=== PATIENT | female | born 1970 | race Two or more races ===

== ENCOUNTER 2018-01-17 14:08 | Outpatient (CLI) | payer OTHER ==
[~2018-01-17 14:08] MED LIST: ADULT ASPIRIN81 MG; ADULT ASPIRIN81 MG PO; BENZONATATE100 MG PO; COZAAR25 MG; COZAAR25 MG PO; HumaLOG 100 UNIT/1 M SUBCUTANEO; JANUMET 50-5001 EACH; JANUMET 50-5001 EACH PO; LEVAQUIN750 MG PO; Lantus 1000 UNITS/10 SUBCUTANEO; MEDROLPACK PO; NEURONTIN300 MG; NEURONTIN300 MG PO; TEGRETOL200 MG PO; XOPENEX0.63 MG/3 IH
== END 2018-01-17 14:11 | disposition home or self-care (01) ==
LOC: RAD 14:08
DX: J18.9 Pneumonia, unspecified organism (principal); J43.2 Centrilobular emphysema

== ENCOUNTER 2018-05-05 09:53 | Emergency (ER) | payer OTHER ==
[~2018-05-05] VITALS: Ht 154.9 cm; Wt 79.8 kg
[2018-05-05] MEDS ORDERED: CARDURA1 MG PO (20:47)
== END 2018-05-05 21:00 | disposition home or self-care (01) ==
LOC: ER 09:53 → CPU-OBS 10:46 → ER 10:46
DX: R07.89 Other chest pain (principal); I10 Essential (primary) hypertension
CPT/HCPCS: G0378; G0379; 93005

== ENCOUNTER 2018-05-19 13:53 | Outpatient (CLI) | payer OTHER ==
[~2018-05-19 13:53] MED LIST changes: +CARDURA1 MG PO
== END 2018-05-19 14:10 | disposition home or self-care (01) ==
LOC: RAD 13:53
DX: E04.1 Nontoxic single thyroid nodule (principal); Z12.31 Encounter for screening mammogram for malignant neoplasm of breast; N61.0 Mastitis without abscess

== ENCOUNTER 2019-09-29 09:00 | Emergency (ER) | payer OTHER ==
[~2019-09-29] VITALS: Ht 154.9 cm; Wt 78.9 kg
[2019-09-29] MEDS ORDERED: HUMALOG100 UNIT/1 SUBCUTANEO (09:11)
[2019-09-29] MEDS ORDERED: TRESIBA100 UNIT/1 SUBCUTANEO (09:11)
[2019-09-29] MEDS ORDERED: JARDIANCE10 MG PO (09:12)
[2019-09-29] MEDS ORDERED: PROPRANOLOL HCL10 MG PO (09:13)
[2019-09-29] MEDS ORDERED: PROMETH-CODEIN 65 ML PO (09:34)
== END 2019-09-29 10:02 | disposition home or self-care (01) ==
LOC: ER 09:00
DX: J44.9 Chronic obstructive pulmonary disease, unspecified (principal)

== ENCOUNTER 2019-10-04 14:46 | Emergency (ER) | payer OTHER ==
[~2019-10-04] VITALS: Ht 152.4 cm; Wt 78.9 kg
[~2019-10-04 14:46] MED LIST changes: +HUMALOG100 UNIT/1 SUBCUTANEO; +JARDIANCE10 MG PO; +PROMETH-CODEIN 65 ML PO; +PROPRANOLOL HCL10 MG PO; +TRESIBA100 UNIT/1 SUBCUTANEO
[2019-10-04] MEDS ORDERED: ADVIL (15:53)
== END 2019-10-04 17:55 | disposition home or self-care (01) ==
LOC: ER 14:46
DX: R06.6 Hiccough (principal); R10.13 Epigastric pain

== ENCOUNTER → 2019-10-08 | Outpatient (CLI) | payer OTHER ==
[~2019-10-08] MED LIST changes: +ADVIL
== END | disposition home or self-care (01) ==
LOC: TOM 08:18
DX: K45.8 Other specified abdominal hernia without obstruction or gangrene (principal); K46.0 Unspecified abdominal hernia with obstruction, without gangrene

== ENCOUNTER 2021-05-03 10:32 | Day surgery (SDC) | payer OTHER ==
[~2021-05-03 10:32] MED LIST changes: +FENOFIBR PO; +JANUMET PO
== END 2021-05-03 22:50 | disposition home or self-care (01) ==
LOC: CIR.AMB 10:32
PROVIDERS: ATTEND Specialist
DX: B07.8 Other viral warts (principal); Z20.822 Contact with and (suspected) exposure to COVID-19; Z53.09 Procedure and treatment not carried out because of other contraindication; I10 Essential (primary) hypertension

== ENCOUNTER 2021-05-24 05:20 | Day surgery (SDC) | payer OTHER | END 2021-05-24 15:15 | disposition home or self-care (01) | LOC: CIR.AMB 05:20 | PROVIDERS: ATTEND Specialist | DX: A63.0 Anogenital (venereal) warts (principal); B07.8 Other viral warts; Z20.822 Contact with and (suspected) exposure to COVID-19 ==

== ENCOUNTER 2021-12-19 08:45 | Outpatient (CLI) | payer OTHER | END 2021-12-19 08:51 | disposition home or self-care (01) | LOC: MAMO-SONO 08:45 | PROVIDERS: ATTEND Internal Medicine | DX: N64.9 Disorder of breast, unspecified (principal) ==

== ENCOUNTER 2022-11-12 09:24 | Outpatient (CLI) | payer OTHER | END 2022-11-12 09:31 | disposition home or self-care (01) | LOC: SONOGRAMA 09:24 | PROVIDERS: ATTEND Internal Medicine Gastroenterology | DX: R10.9 Unspecified abdominal pain (principal) ==

== ENCOUNTER 2022-12-06 07:25 | Outpatient (CLI) | payer OTHER | END 2022-12-06 07:27 | disposition home or self-care (01) | LOC: NUCLEAR 07:25 | PROVIDERS: ATTEND Internal Medicine Gastroenterology | DX: K31.84 Gastroparesis (principal) | CPT/HCPCS: 78264; A9541 ==

== ENCOUNTER 2023-02-11 12:26 | Outpatient (CLI) | payer OTHER | END 2023-02-11 12:33 | disposition home or self-care (01) | LOC: MAMO-SONO 12:26 | PROVIDERS: ATTEND Specialist | DX: N63.11 Unspecified lump in the right breast, upper outer quadrant (principal); N63.21 Unspecified lump in the left breast, upper outer quadrant; N83.209 Unspecified ovarian cyst, unspecified side ==

== ENCOUNTER 2023-03-11 01:43 | Emergency (ER) | payer OTHER ==
[~2023-03-11] VITALS: Ht 144.8 cm; Wt 77.1 kg
[2023-03-11] MEDS ORDERED: TRIJARDY XR 101 EACH (01:54)
[2023-03-11] MEDS ORDERED: LOSARTAN-HCTZ1 EAC2 (01:55)
[2023-03-11] MEDS ORDERED: TUSSI PRES-B L480 ML PO (15:15)
[2023-03-11] MEDS ORDERED: BUDESONIDE0.5 MG/2 M IH (15:15)
[2023-03-11] MEDS ORDERED: TESSALON PERLES PO (15:15)
[2023-03-11] MEDS ORDERED: LEVOFLOXACIN750 MG PO (15:15)
[2023-03-11] MEDS ORDERED: ALBUTEROL2.5 MG/3 M IH (15:15)
[2023-03-11] MEDS ORDERED: IPRATROPIU0.2 MG/1 M IH (15:15)
[2023-03-11] MEDS ORDERED: INTESTINEX680 M2 PO (15:15)
== END 2023-03-11 16:40 | disposition home or self-care (01) ==
LOC: ER 01:43
DX: J44.1 Chronic obstructive pulmonary disease with (acute) exacerbation (principal); J45.31 Mild persistent asthma with (acute) exacerbation; F17.210 Nicotine dependence, cigarettes, uncomplicated; E11.65 Type 2 diabetes mellitus with hyperglycemia; E11.40 Type 2 diabetes mellitus with diabetic neuropathy, unspecified; Z79.4 Long term (current) use of insulin; I10 Essential (primary) hypertension; G50.0 Trigeminal neuralgia; E66.8 Other obesity

== ENCOUNTER 2023-09-14 11:34 | Emergency (ER) | payer OTHER ==
[~2023-09-14] VITALS: Ht 144.8 cm; Wt 73.5 kg
[~2023-09-14 11:34] MED LIST changes: +ALBUTEROL2.5 MG/3 M IH; +BUDESONIDE0.5 MG/2 M IH; +INTESTINEX680 M2 PO; +IPRATROPIU0.2 MG/1 M IH; +LEVOFLOXACIN750 MG PO; +LOSARTAN-HCTZ1 EAC2; +TESSALON PERLES PO; +TRIJARDY XR 101 EACH; +TUSSI PRES-B L480 ML PO
== END 2023-09-14 16:01 | disposition home or self-care (01) ==
LOC: ER 11:35
DX: S46.011A Strain of muscle(s) and tendon(s) of the rotator cuff of right shoulder, initial encounter (principal); X58.XXXA Exposure to other specified factors, initial encounter; Y93.89 Activity, other specified; Y92.018 Other place in single-family (private) house as the place of occurrence of the external cause; Y99.9 Unspecified external cause status; E11.9 Type 2 diabetes mellitus without complications; Z79.84 Long term (current) use of oral hypoglycemic drugs; M71.9 Bursopathy, unspecified

== ENCOUNTER 2024-05-12 19:38 | Emergency (ER) | payer OTHER ==
[~2024-05-12] VITALS: Ht 144.8 cm; Wt 78.5 kg
[2024-05-12] MEDS ORDERED: DOXAZOSIN MESYLA2 MG (20:03)
[2024-05-12] MEDS ORDERED: GLIMEPIRIDE2 M1 (20:04)
[2024-05-12] MEDS ORDERED: FLUMADINE100 MG (20:04)
[2024-05-13] MEDS ORDERED: KETOROLAC TROMETHAMINE 60 MG VIAL IM STA (01:03)
[2024-05-13] MEDS ORDERED: NABUMETONE750 MG PO (03:29)
== END 2024-05-13 03:39 ==
LOC: ER 19:39
DX: M25.551 Pain in right hip (principal)

== ENCOUNTER 2024-09-14 18:35 | Emergency (ER) | payer OTHER ==
[~2024-09-14] VITALS: Ht 154.9 cm; Wt 79.8 kg
[~2024-09-14 18:35] MED LIST changes: +DOXAZOSIN MESYLA2 MG; +DOXAZOSIN MESYLA2 MG PO; +FLUMADINE100 MG; +FLUMAZENIL0.1 MG/1 M IV; +GLIMEPIRIDE2 M1; +GLIMEPIRIDE2 M1 PO; +LOSARTAN POTASS25 MG PO; +NABUMETONE750 MG PO
[2024-09-14] MEDS ORDERED: IPRATROPIUM BROMIDE 0.5 MG/2.5 ML AMPUL.NEB IH ONE (19:45)
[2024-09-14] MEDS ORDERED: BENZONATATE 100 MG CAPSULE PO ONE (19:45)
[2024-09-14] MEDS ORDERED: LEVALBUTEROL HCL 1.25 MG/3 ML SOLUTION IH ONE (19:45)
[2024-09-14] MEDS ORDERED: METHYLPREDNISOLONE SOD SUCC 40 MG VIAL IM ONE (19:45)
[2024-09-14] MEDS ORDERED: CEFTRIAXONE SODIUM 1,000 MG VIAL IM ONE (19:45)
[2024-09-14 20:02] LABS: HEMATOCRIT 49.5 % (36.0-45.00); HEMOGLOBIN 16.6 g/dL (12.0-15.00); MEAN CELL VOLUME 91.2 fL (80.00-100.00); MEAN CORPUSCULAR HEMOGLOBIN 30.7 pg (27.00-32.0); MEAN CORPUSCULAR HGB CONC 33.6 g/dl (32.0-36.0); PLATELET COUNT 183 K/uL (150-450); RED BLOOD COUNT 5.43 M/uL (4.00-6.00); RED CELL DISTRIBUTION WIDTH 13.2 % (11.5-14.5)
[2024-09-14 20:52] LABS: PH,URINE 6.5 (5.0-8.0); URINE APPEARANCE Clear; URINE BILIRRUBIN Negative (NEGATIVE); URINE BLOOD Large; URINE COLOR Dark Yellow; URINE KETONE 15 (NEGATIVE); URINE LEUKOCYTE Negative; URINE NITRATE Negative; URINE PROTEIN >=1000 (NEGATIVE)
[2024-09-14 20:55] LABS: URINE BACTERIA 1422.4 uL (0.0-1933); URINE RBC 16.7 uL (0.0-20.8); URINE WBC 34.6 uL (0.0-23.2)
[2024-09-14 21:06] LABS: URINE CAST 0.91 uL (0.0-1.40); URINE GLUCOSE >=1000 MG/DL (NEGATIVE)
[2024-09-14 22:07] LABS: ALBUMIN 3.3 gm/dL (3.4-5.0); BILIRUBIN TOTAL 0.59 mg/dL (0.3-1.2); CALCIUM 8.5 mg/dL (8.5-10.1); CREATININE SERUM 0.69 mg/dL (0.55-1.02); POTASSIUM 4.03 mEq/L (3.5-5.1); TOTAL PROTEIN 8.3 gm/dL (6.4-8.2)
[2024-09-14] MEDS ORDERED: BENZONATATE200 M1 PO (22:26)
[2024-09-14] MEDS ORDERED: LEVALBUTER0.63 MG/3 IH (22:26)
[2024-09-14] MEDS ORDERED: PEPCID AC20 MG PO (22:26)
[2024-09-14] MEDS ORDERED: ZITHROMAX500 MG PO (22:26)
[2024-09-14] MEDS ORDERED: MONTELUKAST SODI4 M1 PO (22:27)
== END 2024-09-14 22:36 | disposition home or self-care (01) ==
LOC: ER 18:37
PROVIDERS: General Practice
DX: J00 Acute nasopharyngitis [common cold] (principal); I10 Essential (primary) hypertension; E11.9 Type 2 diabetes mellitus without complications; Z79.84 Long term (current) use of oral hypoglycemic drugs; Z20.822 Contact with and (suspected) exposure to COVID-19
CPT/HCPCS: 36415; 71046; 94640; 96372; 99284; J0696; J3490